=== PATIENT | male | born 1940 | race Caucasian/White ===

== ENCOUNTER 2017-03-01 23:27 | Emergency (ER) | payer MEDICARE, OTHER ==
--- NOTE | 2017-03-01 23:33 | EDM.PDOC ---
ED HPI GENERAL MEDICAL PROBLEM - General Chief Complaint: General Stated Complaint: AMB Time Seen by Provider: 03/01/17 23:31 Source of Information: Reports: Patient History Limitations: Reports: No limitations - History of Present Illness INITIAL COMMENTS - FREE TEXT/NARRATIVE: not feeling good all day, been feeling cold sweaty, some cough. some sob & CP. - Related Data Allergies Allergy/AdvReac Type Severity Reaction Status Date / Time Iwrbidg-Oiz-Rxu Reductase Allergy Muscle Verified 03/01/17 23:39 Inhibitor Aches Home Meds: Home Meds Folic Acid 1 mg PO DAILY tablet 03/21/15 [Rx] [place]-3 Fatty Acids [[place]-3] 2 cap PO BID 11/07/15 [History] Potassium Chloride 10 meq PO DAILY 11/07/15 [History] Gabapentin [Neurontin] 600 mg PO TID 01/01/16 [History] Immun Glob G(IGG)/PRO/IGA 0-50 [Privigen 10% Vial] 80 gm IV WEEKLY 01/01/16 [ History] diphenhydrAMINE [Benadryl] 25 mg PO ASDIRECTED PRN 01/01/16 [History] Albuterol/Ipratropium [DuoNeb 3.0-0.5 MG/3 ML] 3 ml INH Q4H PRN 01/18/16 [ History] Aspirin [Ecotrin] 81 mg PO DAILY 01/18/16 [History] Sennosides/Docusate Sodium [Senokot-S Tablet] 1 tab PO BEDTIME PRN 01/18/16 [ History] Tiotropium [Spiriva HandiHaler] 18 mcg INH BEDTIME 01/18/16 [History] Acetaminophen 650 mg PO Q4HR PRN 03/21/16 [History] Levalbuterol Tartrate [Xopenex Hfa] 1 - 2 puff IH Q4H PRN 07/17/16 [History] Vitamin B Complex [B Complex] 1 tab PO DAILY 07/17/16 [History] Pyridoxine HCl 25 mg PO DAILY 09/23/16 [History] Metoprolol Tartrate [Lopressor] 25 mg PO BID #60 tablet 09/25/16 [Rx] Nystatin 5 ml PO QID 10/24/16 [History] Digoxin 0.5 tab PO DAILY 10/31/16 [History] oxyCODONE HCl/Acetaminophen [Endocet 5-325 Tablet] 1 tab PO Q6H PRN 10/31/16 [ History] Warfarin [Coumadin] 5 mg PO BEDTIME 11/08/16 [History] Budesonide [Pulmicort] 0.5 mg IH BID 11/22/16 [History] Bumetanide [Bumex] 2 mg PO BID 11/22/16 [History] Formoterol [Perforomist] 20 mcg NEB BID 11/22/16 [History] Venlafaxine [Effexor XR] 1 tab PO DAILY 11/29/16 [History] Ferrous Sulfate 325 mg PO BID 03/01/17 [History] Furosemide [Lasix] 40 mg PO BID 03/01/17 [History] Past Medical History HEENT History: Reports: None, Impaired vision Other HEENT History: PATIENT WEARS CORRECTIVE GLASSES Cardiovascular History: Reports: Afib, CAD, Heart Failure, High cholesterol, Hypertension, MA, Pacemaker, SOB on exertion, Stents Respiratory History: Reports: COPD, Pneumonia, recurrent, SOB Gastrointestinal History: Reports: GERD Genitourinary History: Reports: None Musculoskeletal History: Reports: Other (see below) Other Musculoskeletal History: IVIG infusion Monday12/20/16 Neurological History: Reports: Other (see below) Other Neuro History: 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 Wears elbow protectors. Scattered bruises - Infectious Disease History Infectious Disease History: Reports: Measles, Mumps Other Infectious Disease History: Pt does not know infections health hx - Past Surgical History HEENT Surgical History: Reports: Cataract surgery, Other (see below) Other HEENT Surgeries/Procedures: Belpharoptosis repair Cardiovascular Surgical History: Reports: Carotid stents Other Respiratory Surgeries/Procedures: left lung removed, lower lobe in 2006, rest of left lung 2009 GI Surgical History: Reports: None Oncologic Surgical History: Reports: Lobectomy Social & Family History - Family History Family Medical History: Noncontributory Cardiac: Reports: MA Respiratory: Reports: Asthma Musculoskeletal: Reports: Arthritis Neurological: Reports: CVA Endocrine/Metabolic: Reports: Osteoporosis Hematologic: Reports: B12 deficiency Oncologic: Reports: Breast, Lung, Other (see below) Other Oncologic Family History: turmor in chest - Tobacco Use Smoking Status *Q: Current Every Day Smoker Years of Tobacco use: 69 Packs/Tins Daily: 0.2 Used Tobacco, but Quit: No Month Tobacco Last Used: DECEMBER Second Hand Smoke Exposure: Yes - Caffeine Use Caffeine Use: Reports: Coffee Other Caffeine Use: 2 cokes/day - Alcohol Use Days Per Week of Alcohol Use: 7 Number of Drinks Per Day: 2 Total Drinks Per Week: 14 - Recreational Drug Use Recreational Drug Use: No - Living Situation & Occupation Living situation: Reports: , with spouse Occupation: retired ED ROS GENERAL - Review of Systems Review Of Systems: ROS reveals no pertinent complaints other than HPI. ED EXAM, GENERAL - Physical Exam Exam: See Below Exam Limited By: No limitations General Appearance: alert, WD/WN, mild distress, other (general discomfort) Ears: hearing grossly normal Throat/Mouth: Normal voice, No airway compromise Head: atraumatic Neck: non-tender, full range of motion Respiratory/Chest: no respiratory distress, no accessory muscle use, rales, rhonchi, other (basilar) Cardiovascular: tachycardia, irregularly irregular GI/Abdominal: soft, non tender Extremities: pedal edema, other (1+) Neurological: alert, oriented, normal cognition, normal gait, no motor/sensory deficits Psychiatric: anxious Skin Exam: Warm, Dry Lymphatic: no adenopathy Course - Vital Signs Last Recorded V/S: Last Vital Signs Temp 37.0 C 03/01/17 23:41 Pulse 152 H 03/02/17 00:40 Resp 35 H 03/01/17 23:41 BP 87/60 L 03/02/17 00:40 Pulse Ox 90 L 03/01/17 23:41 - Orders/Labs/Meds Orders: Active Orders 24 hr Category Date Time Status EKG 12 Lead [EKG Documentation Completion] [RC] STAT Care 03/01/17 23:41 Active CULTURE BLOOD [BC] Stat Lab 03/01/17 23:38 Received Diltiazem [Cardizem] 100 mg Med 03/02/17 00:45 Active Sodium Chloride 0.9% [Normal Saline] 100 ml IV TITRATE Sodium Chloride 0.9% [Normal Saline] 1,000 ml Med 03/01/17 23:45 Active IV ASDIRECTED Medication Orders Sodium Chloride (Normal Saline) 1,000 mls @ 50 mls/hr IV ASDIRECTED NICOLE Last Admin: 03/01/17 23:40 Dose: 50 mls/hr Diltiazem HCl 100 mg/ Sodium (Chloride) 100 mls @ 5 mls/hr IV TITRATE NICOLE; 5 MG /HR PRN Reason: Protocol Last Admin: 03/02/17 00:40 Dose: 5 mls/hr Labs: Laboratory Tests 03/01/17 03/01/17 03/01/17 Range/Units 23:38 23:38 23:38 WBC 29.8 H* (5.0-10.0) 10^3/uL RBC 4.37 L (4.6-6.2) 10^6/uL Hgb 12.5 L (14.0-18.0) g/dL Hct 38.2 L (40.0-54.0) % MCV 87.4 (80-100) fL MCH 28.6 (27.0-34.0) pg MCHC 32.7 L (33.0-35.0) g/dL Plt Count 154 (150-450) 10^3/uL Neut % (Auto) 87.1 H (42.2-75.2) % Lymph % (Auto) 3.8 L (20.5-50.1) % [place] % (Auto) 8.8 H (2-8) % Eos % (Auto) 0.1 L (1.0-3.0) % Baso % (Auto) 0.2 (0.0-1.0) % Add Manual Diff Yes Neutrophils % (Manual) 91 % Lymphocytes % (Manual) 2 % Monocytes % (Manual) 7 % PT (9.0-12.0) SEC INR (0.9-1.2) ABG pH (7.35-7.45) ABG pCO2 (35-45) mmHg ABG pO2 (70-100) mmHg ABG HCO3 (22-26) mmol/L ABG O2 Saturation (95-100) % ABG Base Excess ((-2)-(+3)) mmol/L Hermann Test O2 Delivery Device Oxygen Flow Rate Sodium 133 L (135-145) mmol/L Potassium 3.1 L (3.6-5.0) mmol/L Chloride 89 L (101-111) mmol/L Carbon Dioxide 30.0 (21.0-31.0) mmol/L Anion Gap 17.1 BUN 10 (7-18) mg/dL Creatinine 1.0 (0.6-1.3) mg/dL Est Cr Clr Drug Dosing 73.24 mL/min Estimated GFR (MDRD) > 60 BUN/Creatinine Ratio 10.00 Glucose 108 H (74-105) mg/dL Lactic Acid 5.2 H (0.5-2.2) mmol/L Calcium 7.9 L (8.4-10.2) mg/dl Total Bilirubin 0.7 (0.2-1.0) mg/dL AST 39 (10-42) IU/L ALT 17 (10-60) IU/L Alkaline Phosphatase 106 (42-121) IU/L Troponin I 0.03 H* (0.00-0.02) ng/ml B-Natriuretic Peptide 309 H (0-100) pg/ml Total Protein 6.0 L (6.7-8.2) g/dl Albumin 2.5 L (3.2-5.5) g/dl Globulin 3.5 Albumin/Globulin Ratio 0.71 Digoxin (0-2.5) ng/ml 03/01/17 03/01/17 03/02/17 Range/Units 23:38 23:38 00:50 WBC (5.0-10.0) 10^3/uL RBC (4.6-6.2) 10^6/uL Hgb (14.0-18.0) g/dL Hct (40.0-54.0) % MCV (80-100) fL MCH (27.0-34.0) pg MCHC (33.0-35.0) g/dL Plt Count (150-450) 10^3/uL Neut % (Auto) (42.2-75.2) % Lymph % (Auto) (20.5-50.1) % [place] % (Auto) (2-8) % Eos % (Auto) (1.0-3.0) % Baso % (Auto) (0.0-1.0) % Add Manual Diff Neutrophils % (Manual) % Lymphocytes % (Manual) % Monocytes % (Manual) % PT 26.0 H (9.0-12.0) SEC INR 2.6 H (0.9-1.2) ABG pH 7.47 H (7.35-7.45) ABG pCO2 44 (35-45) mmHg ABG pO2 65 L (70-100) mmHg ABG HCO3 31.1 H (22-26) mmol/L ABG O2 Saturation 93 L (95-100) % ABG Base Excess 7 H ((-2)-(+3)) mmol/L Hermann Test pos O2 Delivery Device Nasal cannula Oxygen Flow Rate 4 Sodium (135-145) mmol/L Potassium (3.6-5.0) mmol/L Chloride (101-111) mmol/L Carbon Dioxide (21.0-31.0) mmol/L Anion Gap BUN (7-18) mg/dL Creatinine (0.6-1.3) mg/dL Est Cr Clr Drug Dosing mL/min Estimated GFR (MDRD) BUN/Creatinine Ratio Glucose (74-105) mg/dL Lactic Acid (0.5-2.2) mmol/L Calcium (8.4-10.2) mg/dl Total Bilirubin (0.2-1.0) mg/dL AST (10-42) IU/L ALT (10-60) IU/L Alkaline Phosphatase (42-121) IU/L Troponin I (0.00-0.02) ng/ml B-Natriuretic Peptide (0-100) pg/ml Total Protein (6.7-8.2) g/dl Albumin (3.2-5.5) g/dl Globulin Albumin/Globulin Ratio Digoxin 0.2 (0-2.5) ng/ml Meds: Medications Generic Name Dose Route Start Last Admin Trade Name Freq PRN Reason Stop Dose Admin Sodium Chloride 1,000 mls @ 50 mls/hr 03/01/17 23:45 03/01/17 23:40 Normal Saline IV 50 mls/hr ASDIRECTED NICOLE Administration Diltiazem HCl 100 mg/ Sodium 100 mls @ 5 mls/hr 03/02/17 00:45 03/02/17 00:40 Chloride IV 5 mls/hr TITRATE NICOLE Administration Protocol 5 MG/HR Discontinued Medications Generic Name Dose Route Start Last Admin Trade Name Latisha PRN Reason Stop Dose Admin Diltiazem HCl 20 mg 03/01/17 23:34 03/01/17 23:39 Diltiazem IVPUSH 03/01/17 23:35 20 mg ONETIME ONE Administration Piperacillin Sod/Tazobactam 100 mls @ 200 mls/hr 03/02/17 00:05 03/02/17 00: 25 Sod 3.375 gm/ Sodium Chloride IV 03/02/17 00:34 200 mls/hr ONETIME ONE Administration Piperacillin Sod/Tazobactam Sod Confirm 03/02/17 00:21 03/02/17 00:34 Zosyn Administered 03/02/17 00:22 Not Given Dose 3.375 gm .[address]TE .[facility] - Re-Assessments/Exams Free Text/Narrative Re-Assessment/Exam: 03/02/17 01:11 results discussed withPt & family. case discussed with Dr Pinzon @ who kindly accepted Pt after stabilization of cardio-pulm via added fluids and ET. Departure - Departure Time of Disposition: 01:13 Disposition: DC/Tfer to Acute Hospital 02 Condition: fair Clinical Impression: Septic shock, Rapid atrial fibrillation, Hypoxemia Forms: Interfacility Transfer EMTALA - My Orders Last 24 Hours: My Active Orders 03/01/17 23:38 CULTURE BLOOD [BC] Stat 03/01/17 23:41 EKG 12 Lead [EKG Documentation Completion] [RC] STAT 03/01/17 23:45 Sodium Chloride 0.9% [Normal Saline] 1,000 ml IV ASDIRECTED 03/02/17 00:45 Diltiazem [Cardizem] 100 mg Sodium Chloride 0.9% [Normal Saline] 100 ml IV TITRATE - Assessment/Plan Last 24 Hours: My Active Orders 03/01/17 23:38 CULTURE BLOOD [BC] Stat 03/01/17 23:41 EKG 12 Lead [EKG Documentation Completion] [RC] STAT 03/01/17 23:45 Sodium Chloride 0.9% [Normal Saline] 1,000 ml IV ASDIRECTED 03/02/17 00:45 Diltiazem [Cardizem] 100 mg Sodium Chloride 0.9% [Normal Saline] 100 ml IV TITRATE
[2017-03-01] MEDS ORDERED: Diltiazem 25 MG/5 ML SDV IVPUSH ONE (23:34)
[2017-03-01] MEDS ORDERED: Sodium Chloride 0.9% 1,000 ML IV SCH (23:45)
[2017-03-02] MEDS ORDERED: Piperacillin/Tazobactam 3.375 GM in Sodium Chloride 0.9% 100 ML IV ONE (00:05)
[2017-03-02 00:08] LABS: CHLORIDE,CL 89 mmol/L (101-111); SODIUM,NA 133 mmol/L (135-145)
[2017-03-02 00:41] VITALS: BP 87/60
[2017-03-02] MEDS ORDERED: Diltiazem 100 MG in Sodium Chloride 0.9% 100 ML IV SCH (00:45)
[2017-03-02 00:57] LABS: O2 DELIVERY DEVICE NASAL CANNULA
[2017-03-02 00:58] LABS: BASE EXCESS ARTERIAL 7 mmol/L ((-2)-(+3)); BICARBONATE,ARTERIAL 31.1 mmol/L (22-26); O2 FLOW RATE 4; O2 SATURATION ARTERIAL 93 % (95-100); PCO2 ARTERIAL 44 mmHg (35-45); PO2 ARTERIAL 65 mmHg (70-100)
[2017-03-02 00:59] LABS: ALLEN TEST pos
--- NOTE | 2017-03-06 13:29 | EKG ---
03/01/2017- JEANNINE LUA - Twelve-lead EKG shows atrial fibrillation with rapid ventricular response with heart rate of 193, mild right axis deviation, occasional PVC. No significant ST elevation or ST depression noted on this 12-lead EKG. QTc is 411. [facility] /[id number]
== END 2017-03-02 02:00 ==
LOC: DL.ED 23:27
DX: I48.91 Unspecified atrial fibrillation (principal); A41.9 Sepsis, unspecified organism; R65.21 Severe sepsis with septic shock; R09.02 Hypoxemia; I25.10 Atherosclerotic heart disease of native coronary artery without angina pectoris; I11.0 Hypertensive heart disease with heart failure; E78.00 Pure hypercholesterolemia, unspecified; I25.2 Old myocardial infarction; J44.9 Chronic obstructive pulmonary disease, unspecified; F17.210 Nicotine dependence, cigarettes, uncomplicated; Z91.09 Other allergy status, other than to drugs and biological substances; Z79.82 Long term (current) use of aspirin; Z79.899 Other long term (current) drug therapy; Z98.890 Other specified postprocedural states; Z98.49 Cataract extraction status, unspecified eye
CPT/HCPCS: 36415; 36600; 71010; 80053; 80162; 82803; 83605; 83880; 84484; 85025; 85610; 87040; 87070; 87077; 87186; 87205; 93005; 93010; 96361; 96365; 96367; 96376; 99284; 99285; J2543; J7030; J7050; J3490